=== PATIENT | female | born 1975 | race Caucasian/White ===

== ENCOUNTER 2020-10-09 16:03 | Outpatient (CLI) | payer BC | END 2020-10-09 16:04 | disposition home or self-care (01) | LOC: CSHCT 16:03 | PROVIDERS: ATTEND Otolaryngology Otolaryngic Allergy | DX: J32.9 Chronic sinusitis, unspecified (principal); J34.2 Deviated nasal septum; J34.3 Hypertrophy of nasal turbinates ==